=== PATIENT | male | born 1950 | race Caucasian/White ===

== ENCOUNTER 2021-02-24 08:02 | Outpatient (RCR) | payer MEDICARE, OTHER, SELFPAY ==
--- NOTE | 2021-02-24 08:58 | PTOPEVAL ---
Thank you for referring Taurus Dang to [facility].? The patient is scheduled to be seen for therapy? __3__x/week for 12 visits. Please review, sign, date and return this plan of care KINDRA. I agree with and certify that the following plan of care is medically necessary. Referring Physician Date Admitting Provider: Attending Provider: Lian Avila, JUMPBASTING COLLAR BASTER Referring Provider: *PT Outpatient Evaluation Start: 02/24/21 08:06 Freq: Status: Active Protocol: Document 02/24/21 08:07 RASHEEDA (Rec: 02/24/21 08:58 [email or web address] [email or web address]) Therapy Assessment Status Assessment Status Assessment Status Evaluation Evaluation Information Problem Diagnosis left reverse total shoulder replacement Onset 02/22/21 Subjective Information Pt. reports he underwent Query Text:As Reported By Patient/ shoulder replacement Monday. Family He states that he was having alot of pain yesterday and is getting a little better today. He reports that he is having trouble sleeping due to pain and is sleeping in his recliner. He reports that he has not attempted to exercise. He reports that his goal is to get normnal mobility. Prior Level of Function Activity Level (Last 3 Months) Occupation retired Hand Dominance Right Activity of Daily Living Ability Independent Indoor/Home Mobility Independent Community Mobility Independent Stairs Ability Independent Functional Cognition (Planning, Shopping Independent , Taking Medications) Cooking Yes Cleaning Yes Laundry Yes Shopping Yes Driving Yes Comments Additional Prior Level of Function Pt. reports that he has a Comments garage and performs metal work with metal cutting, welding and other activities and would like to return to those activities. Pain Assessment Pain Scale Pain Scale Used Numeric (1 - 10) Self Report Pain Assessment Left Shoulder(s) Reported Pain Level 4 Pain Description Aching Pain Frequency Continuous Lowest Pain Intensity 3 Greatest Pain Intensity 9 Pain Aggravating Factors Exercise/Activity,Supine Pain Score Pain
--- NOTE | 2021-03-03 09:10 | PCPTNOTE ---
Mr. Dang has attended a total of 3 treatment sessions. Thus far treatment has consisted of PROM, AAROM, and mobilization techniques combined with modality care to reduce pain and edema. Pt. presents with 10 degrees of passive left shoulder ER at 0 degrees abduction and 120 degrees passive left shoulder flexion. Pt. remains limited due to pain, however this is not atypical as he is currently 8 days post op. He currently has a comprehensive HEP consisting of PROM and AAROM techniques and has been educated in methods for edema control at home. Thank you for the referral of this pt. and please contact me if there are any concerns regarding the pt.'s rehab. Kayden Washburn, MPT
--- NOTE | 2021-03-17 09:19 | PCPTNOTE ---
Mr Dang has attended a total of 9 outpatient treatment sessions. Thus far treatment has consisted of PROM, AAROM, and mobilization techniques combined with modality care to reduce pain and increase tissue extensibility. Pt presents with 23 degrees of passive left shoulder ER at 0 degrees abduction and 120 degrees passive left shoulder flexion. Patient continues to perform HEP of AAROM with cane and pulleys along with passive stretching at 3 weeks post op. Thank you for the referral of this patient and please contact me if there are any concerns regarding the patient's rehab. Arlen Vazquez PTA
--- NOTE | 2021-03-25 15:01 | PTOPEVAL ---
Thank you for referring Taurus Dang to [facility].? The patient is scheduled to be seen for therapy? __3__x/week for 9 visits. Please review, sign, date and return this plan of care KINDRA. I agree with and certify that the following plan of care is medically necessary. Referring Physician Date Admitting Provider: Attending Provider: Lian Avila, RENTAL SALES AGENT Referring Provider: *PT Outpatient Evaluation Start: 02/24/21 08:06 Freq: Status: Active Protocol: Document 03/24/21 08:00 RASHEEDA (Rec: 03/24/21 09:10 [email or web address] [email or web address]) Therapy Assessment Status Assessment Status Assessment Status Progress Evaluation Information Problem Diagnosis reverse left shoulder replacement Onset 02/22/21 Subjective Information Pt. reports that left shoulder Query Text:As Reported By Patient/ is improving. He states that Family he is still limited due to pain. He reports most difficulty with attempting to put his belt on or reach overhead. He states that he is very active and needs to be able to lift significant weight with the left arm. Pt. request continued PT focusing on strength. Pain Assessment Pain Scale Pain Scale Used Numeric (1 - 10) Self Report Pain Assessment Left Shoulder(s) Reported Pain Level 2 Pain Score Pain Score 2: Self Report Interventions Used Interventions Used By Clinicians Activity or ADL's,Electrical Stimulation,Exercise,Heat Upper Extremity Range of Motion General Upper Extremity Range of Motion Gross Upper Extremity Range of Motion -left shoulder flexion AROM 93 Comments degrees -left shoulder flexion PROM 119 degrees Pt. is able to reach the occiput with the left u.e. with combined ER and flexion. Pt. reaches the middle 1/3 of left iliac crest with combined IR and extension of the left u.e. Upper Extremity Muscle Strength Testing General Upper Extremity Strength Gross Upper Extremity Strength Comments -left shoulder flexion 3/5 -left shoulder ER 3/5 -left shoulder abduction 3/5 -left shoulder IR 3/5 General Exercise General Exercises Exercise Description -c
--- NOTE | 2021-04-16 09:39 | PTOPEVAL ---
Thank you for referring Taurus Dang to [facility].? The patient is scheduled to be seen for therapy? ____x/week for ___ weeks. Please review, sign, date and return this plan of care KINDRA. I agree with and certify that the following plan of care is medically necessary. Referring Physician Date Admitting Provider: Attending Provider: Lian Avila, IRRIGATOR GRAVITY FLOW Referring Provider: *PT Outpatient Evaluation Start: 02/24/21 08:06 Freq: Status: Active Protocol: Document 04/16/21 08:52 [facility] (Rec: 04/16/21 09:37 [facility] [email or web address]) Therapy Assessment Status Assessment Status Assessment Status Re-evaluation Evaluation Information Problem Diagnosis reverse left shoulder replacement Onset 02/22/21 Subjective Information patient reports he was at his Query Text:As Reported By Patient/ surgeons office yesterday for Family follow up. he presents this date with new orders to continue skilled PT, but with all restrictions lifted. he does report he was instructed not to lift a gallon of milk or water with the L shoulder yet. he is ready to begin progressing more strengthening and resistance exercises. Pain Assessment Timing of Pain Assessment Timing of Pain Assessment Assessment Pain Scale Pain Scale Used Numeric (1 - 10) Self Report Pain Assessment Left Shoulder(s) Reported Pain Level 3 Greatest Pain Intensity 3 Pain Score Pain Score 3: Self Report Interventions Used Interventions Used By Clinicians Activity or ADL's,Education, Exercise,Heat Upper Extremity Range of Motion General Upper Extremity Range of Motion Gross Upper Extremity Range of Motion -left shoulder flexion AROM Comments 135 degrees -left shoulder flexion PROM 140 degrees -left shoulder abduction prom 90 degrees -left shoulder er at 90 abd prom 35 degrees -left shoulder ir at 90 abd prom 50 degrees Pt. is able to reach the occiput with the left u.e. with combined ER and flexion. Pt. reaches the greater trochanter of left hip crest
== END 2021-05-05 09:24 | disposition home or self-care (01) ==
LOC: CHSPT 08:02
PROVIDERS: Visit Provider Nurse Practitioner Family
DX: Z47.1 Aftercare following joint replacement surgery (principal); Z96.612 Presence of left artificial shoulder joint; M12.812 Other specific arthropathies, not elsewhere classified, left shoulder
CPT/HCPCS: 97014; 97110; 97161; G0283

== ENCOUNTER 2021-10-20 07:56 | Outpatient (RCR) | payer MEDICARE, OTHER, SELFPAY ==
--- NOTE | 2021-10-20 08:27 | PTOPEVAL ---
Thank you for referring Taurus Dang to [facility].? The patient is scheduled to be seen for therapy? __3__x/week for 12 visits. Please review, sign, date and return this plan of care KINDRA. I agree with and certify that the following plan of care is medically necessary. Referring Physician Date Admitting Provider: Attending Provider: Lian Avila, WINE PASTEURIZER Referring Provider: *PT Outpatient Evaluation Start: 10/20/21 07:57 Freq: Status: Active Protocol: Document 10/20/21 07:57 RASHEEDA (Rec: 10/20/21 08:26 [email or web address] [email or web address]) Therapy Assessment Status Assessment Status Assessment Status Evaluation Evaluation Information Problem Diagnosis right shoulder rotator cuff arthropathy Onset 08/23/21 Subjective Information Pt. reports gradual onset of Query Text:As Reported By Patient/ right shoulder pain over the Family past few months. He states that he slipped and bumped the shoulder on a wall about that time that may have triggered his pain. He reports that pain was worsening until he had an injection last week and pain has been gradually improving. He reports that pain causes difficulty sleeping at night. He reports pain is noted with reaching overhead and behind his back. He reports that his goal is to decrease his shoulder pain and improve mobility. Pain Assessment Timing of Pain Assessment Timing of Pain Assessment Pre-Treatment Pain Scale Pain Scale Used Numeric (1 - 10) Self Report Pain Assessment Right Shoulder(s) Reported Pain Level 3 Pain Description Aching Pain Frequency Continuous Lowest Pain Intensity 3 Greatest Pain Intensity 8 Pain Aggravating Factors Exercise/Activity,Lifting, Supine Pain Score Pain Score 3: Self Report Interventions Used Interventions Used By Clinicians Electrical Stimulation, Exercise,Heat Upper Extremity Range of Motion General Upper Extremity Range of Motion Gross Upper Extremity Range of Motion -right shoulder flexion 119 Comments degrees -left shoulder flexion 138 degrees -right shoulder ER pt. reaches
--- NOTE | 2021-11-15 09:19 | PTOPEVAL ---
Thank you for referring Taurus Dang to [facility].? The patient is scheduled to be seen for therapy? ____x/week for ___ weeks. Please review, sign, date and return this plan of care KINDRA. I agree with and certify that the following plan of care is medically necessary. Referring Physician Date Admitting Provider: Attending Provider: Lian Avila, PHONE SCREENER Referring Provider: *PT Outpatient Evaluation Start: 10/20/21 07:57 Freq: Status: Active Protocol: Document 11/15/21 08:10 [facility] (Rec: 11/15/21 09:19 [facility] [email or web address]) Therapy Assessment Status Assessment Status Assessment Status Discharge Evaluation Information Problem Diagnosis R shoulder rotator cuff arthopathy Onset 08/23/21 Subjective Information Patient reports that he was Query Text:As Reported By Patient/ feeling a lot better, but then Family last week reached for a plate and he had a sharp pain. He states that he does not want to get surgery, but realizes he might need to because the pain is getting is so bad with overhead movements. The patient reports he is going to take a break at this time because he has other personal commitments and once a decision is made with his doctor. Pain Assessment Timing of Pain Assessment Timing of Pain Assessment Assessment Pain Scale Pain Scale Used Numeric (1 - 10) Self Report Pain Assessment Right Shoulder(s) Reported Pain Level 1 Greatest Pain Intensity 10 Pain Score Pain Score 1: Self Report Interventions Used Interventions Used By Clinicians Activity or ADL's,Electrical Stimulation,Exercise,Heat Upper Extremity Range of Motion General Upper Extremity Range of Motion Gross Upper Extremity Range of Motion R active shoulder flexion: 150 Comments (grimacing and whincing in pain) R functional reach IR: L1 R functional reach ER: occiput Upper Extremity Muscle Strength Testing General Upper Extremity Strength Gross Upper Extremity Strength Comments R shoulder flexion: 3/5 R shoulder ER: 4/5 R shoulder IR: 4+/5 R shoulder abuction: 3+/5 Pain with flexion and abduction General Exercise General Exercis
== END 2021-11-15 10:16 | disposition home or self-care (01) ==
LOC: CHSPT 07:56
PROVIDERS: Visit Provider Nurse Practitioner Family
DX: M12.811 Other specific arthropathies, not elsewhere classified, right shoulder (principal)
CPT/HCPCS: 97014; 97110; 97140; 97161; G0283

== ENCOUNTER 2022-01-31 10:59 | Outpatient (RCR) | payer MEDICARE, OTHER, SELFPAY ==
--- NOTE | 2022-01-31 11:44 | PTOPEVAL ---
Thank you for referring Taurus Dang to [facility].? The patient is scheduled to be seen for therapy? __3__x/week for 12 visits. Please review, sign, date and return this plan of care KINDRA. I agree with and certify that the following plan of care is medically necessary. Referring Physician Date Admitting Provider: Attending Provider: Cameron Chowdhury, MD Referring Provider: *PT Outpatient Evaluation Start: 01/31/22 11:12 Freq: Status: Active Protocol: Document 01/31/22 11:12 RASHEEDA (Rec: 01/31/22 11:42 [email or web address] [email or web address]) Therapy Assessment Status Assessment Status Assessment Status Evaluation Evaluation Information Problem Diagnosis reverse TSA Onset 01/24/22 Subjective Information Pt. reports he underwent Query Text:As Reported By Patient/ shoulder replacement on Monday Family last week. He reports that he has been having severe pain post surgery. He went to the ER last week, and everything was fine. He reports that he cannot sleep at night. He reports that he has been sleeping in a reclined position. 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 He reports that his goal currently is to decrease pain and improve his shoulder mobiltiy. Pain Assessment Timing of Pain Assessment Timing of Pain Assessment Pre-Treatment Pain Scale Pain Scale Used Numeric (1 - 10) Self Report Pain Assessment Left Shoulder(s) Reported Pain Level 8 Pain Description Aching Pain Score Pain Score 8: Self Report Interventions Used Interventions Used By Clinicians Activity or ADL's,Exercise Upper Extremity Range of Motion General Upper Extremity Range of Motion Gross Upper Extremity Range of Motion Passive ROM at the right Comments shoulder: flexion 82 degrees 2 degrees ER at 20 degrees abduction IR is not tested Posture Posture Standing Position Additional Posture Comments Pt. is very guarded with the elbow flexed at 90 degrees on the right with right shoulder protracted and tilted anteriorly. General Exercise General Exercises Exercise Description -passive stretching into right Que
--- NOTE | 2022-02-16 10:54 | PTOPEVAL ---
Thank you for referring Taurus Dang to [facility]. Please review, sign, date and return this plan of care [facility]. I agree with and certify that the following plan of care is medically necessary. Referring Physician Date Admitting Provider: Attending Provider: Cameron Chowdhury, MD Referring Provider: *PT Outpatient Evaluation Start: 01/31/22 11:12 Freq: Status: Active Protocol: Document 02/16/22 10:09 RASHEEDA (Rec: 02/16/22 10:53 RASHEEDA [email or web address]) Therapy Assessment Status Assessment Status Assessment Status Progress Evaluation Information Problem Diagnosis reverse TSA Onset 01/24/22 Subjective Information Pt. reports that the shoulder Query Text:As Reported By Patient/ is getting better. He reports Family that pain has decreased as of recently. He reports that he is still stiff and weak with reaching overhead. He reports that his goal remains to improve his strength to use the right arm with all activities. Pain Assessment Timing of Pain Assessment Timing of Pain Assessment Pre-Treatment Pain Scale Pain Scale Used Numeric (1 - 10) Self Report Pain Assessment Right Shoulder(s) Reported Pain Level 2 Left Shoulder(s) Reported Pain Level 0 Pain Score Pain Score 2,0: Self Report Interventions Used Interventions Used By Clinicians Electrical Stimulation, Exercise,Heat Upper Extremity Range of Motion General Upper Extremity Range of Motion Gross Upper Extremity Range of Motion -Pt achies 92 degrees right Comments shoulder flexion AROM against gravity -He reaches the area of the lateral right occiput with the right u.e. in combined shoulder flexion and ER General Exercise General Exercises Exercise Description -passive stretching to the Query Text:Record Sets, Reps, right shoulder into flexion, Resistance, and Position ER and IR x 14 minutes -pulleys to promote shoulder flexion x 2 minutes -isometric flexion, extension, IR, ER and abduction x 10 reps at 10 second holds - Modalities Electrical Stimulation Right Shoulder Stimulation Type Interferential Treatment Duration (minutes) 15 In Conjunct
--- NOTE | 2022-03-04 14:52 | PTOPEVAL ---
Thank you for referring Taurus Dang to [facility].? The patient is scheduled to be seen for therapy? ____x/week for ___ weeks. Please review, sign, date and return this plan of care KINDRA. I agree with and certify that the following plan of care is medically necessary. Referring Physician Date Admitting Provider: Attending Provider: Cameron Chowdhury, MD Referring Provider: *PT Outpatient Evaluation Start: 01/31/22 11:12 Freq: Status: Active Protocol: Document 02/25/22 08:30 RUST (Rec: 02/25/22 09:47 [facility]UST [email or web address]) Therapy Assessment Status Assessment Status Assessment Status Re-evaluation Evaluation Information Problem Diagnosis R Reverse TSA Onset 01/24/22 Additional Evaluation Detail Quick DASH = 31.8% Functionally Impaired Subjective Information Pt reports that he feels as Query Text:As Reported By Patient/ though he is making progress Family with the movement of his R shoulder. He states that the pain has gotten better, but will still cause him to sleep on a couch or recliner to keep him off of his side. Pain Assessment Timing of Pain Assessment Timing of Pain Assessment Assessment Pain Scale Pain Scale Used Numeric (1 - 10) Self Report Pain Assessment Right Shoulder(s) Reported Pain Level 3 Greatest Pain Intensity 9 Left Shoulder(s) Reported Pain Level 1 Pain Score Pain Score 3,1: Self Report Interventions Used Interventions Used By Clinicians Education,Electrical Stimulation,Exercise Upper Extremity Range of Motion Scapular/ Shoulder Range of Motion Right Shoulder Flexion - Active 104 Shoulder Medial Rotation - Active 30 Shoulder Medial Rotation - Active R Glute Query Text:Reach Behind the Back Shoulder Lateral Rotation - Active 25 Shoulder Lateral Rotation - Active R yazidism Query Text:Reach Behind the Head Left Shoulder Medial Rotation - Active L Glute Query Text:Reach Behind the Back Shoulder Lateral Rotation - Active Post C Spine Query Text:Reach Behind the Head Upper Extremity Muscle Strength Testing Scapular/Shoulder Right Shoulder Flexion Strength 4- Good - Left Shoulder Flexion Strength 4+ Good + General Exercise General Exercises Exercise Description Ther Ex Query Text:Record Sets, Reps, -passive stretching to the Resistance, and Position right shoulder into flexion, ER and IR x 10 minutes -pulleys to promote shoulder flexion x4 min
--- NOTE | 2022-03-18 10:32 | PTOPEVAL ---
Thank you for referring Taurus Dang to [facility].? The patient is scheduled to be seen for therapy? ____x/week for ___ weeks. Please review, sign, date and return this plan of care KINDRA. I agree with and certify that the following plan of care is medically necessary. Referring Physician Date Admitting Provider: Attending Provider: Cameron Chowdhury, MD Referring Provider: *PT Outpatient Evaluation Start: 01/31/22 11:12 Freq: Status: Active Protocol: Document 03/18/22 09:35 [facility] (Rec: 03/18/22 10:31 [facility] [email or web address]) Therapy Assessment Status Assessment Status Assessment Status Discharge Evaluation Information Problem Diagnosis R Reverse TSA Onset 01/24/22 Additional Evaluation Detail quick dash = 36% functionally declined Subjective Information patient reports he feels good Query Text:As Reported By Patient/ this date. he reports he is Family ready for today to be his last therapy visit. he reports he is independent in his home activities. Pain Assessment Timing of Pain Assessment Timing of Pain Assessment Assessment Pain Scale Pain Scale Used Numeric (1 - 10) Self Report Pain Assessment Right Shoulder(s) Reported Pain Level 2 Left Shoulder(s) Reported Pain Level 0 Pain Score Pain Score 2,0: Self Report Interventions Used Interventions Used By Clinicians Activity or ADL's,Education, Electrical Stimulation, Exercise,Heat Upper Extremity Range of Motion Scapular/ Shoulder Range of Motion Right Shoulder Flexion - Active 137 Shoulder Medial Rotation - Active 40 Shoulder Lateral Rotation - Active 55 Scapular/Shoulder Range of Motion functional reach behind head Comments to the upper cervical spine functional reach behind back to the ipsilateral buttock Upper Extremity Muscle Strength Testing Scapular/Shoulder Right Shoulder Flexion Strength 4+ Good + Shoulder Lateral Rotation Strength 4+ Good + General Exercise General Exercises Exercise Description Ther Ex Query Text:Record Sets, Reps, -passive stretching to the Resistance, and Position right shoulder into flexion, ER and IR x 10 minutes -pulleys to promote shoulder flexion x5 minutes -ball on shelf 1.1# x 10 -re-evaluation 5 minutes Modalities Electrical Stimulation Right Shoulder Stimulation Type Interferential Treatme
== END 2022-03-18 11:15 | disposition home or self-care (01) ==
LOC: CHSPT 10:59
PROVIDERS: Visit Provider Orthopaedic Surgery
DX: Z48.89 Encounter for other specified surgical aftercare (principal); M12.811 Other specific arthropathies, not elsewhere classified, right shoulder
CPT/HCPCS: 97014; 97110; 97161; G0283